=== PATIENT | male | born 1995 | race Caucasian/White ===

== ENCOUNTER 2018-05-17 14:32 | Emergency (ER) | payer OTHER ==
[~2018-05-17] VITALS: Ht 177.8 cm; Wt 81.6 kg
[2018-05-17 14:40] VITALS: BP 145/90
[2018-05-17] MEDS ORDERED: ONDANSETRON 4 MG ODT PO ONE (15:30)
[2018-05-17] MEDS ORDERED: KETOROLAC 60 MG/2 ML VIAL IM ONE (15:30)
[2018-05-17] MEDS ORDERED: MORPHINE SULFATE 4 MG/ML SYR IM ONE (17:15)
[2018-05-17] MEDS ORDERED: PHENYTOIN 100 MG CAPER PO ONE (17:15)
[2018-05-17 18:35] VITALS: BP 114/69
== END 2018-05-17 18:30 | disposition home or self-care (01) ==
LOC: MED 14:32
DX: R56.9 Unspecified convulsions (principal); R51 Headache; F17.200 Nicotine dependence, unspecified, uncomplicated
CPT/HCPCS: 96372; 99283; J1885; J2270; Q0162

== ENCOUNTER 2018-09-07 11:38 | Emergency (ER) | payer OTHER ==
[~2018-09-07] VITALS: Ht 177.8 cm; Wt 65.8 kg
--- NOTE | 2018-09-07 11:38 | NUR ---
Patient BIBA ACLS, transferred to bed 4. Dr. Barahona and RN evaluating patient at bedside.
[2018-09-07 11:40] VITALS: BP 103/59
[2018-09-07] MEDS ORDERED: LORazepam 2 MG/ML VIAL IM ONE (11:55)
--- NOTE | 2018-09-07 12:06 | NUR ---
LAB AT BEDSIDE
--- NOTE | 2018-09-07 12:19 | NUR ---
BIBA WITH C/O SEIZURE EPISODE FOR 2 MINS AT HOME, -INJURY, STATED NOT TAKING MEDICATION FOR 2 DAYS, HX OF TBI, SEIZURE, TX OF KEPPRA. AAOX4. PATIENT STATES HEADACHE PAIN OF 10/10 AT THIS TIME. PATIENT POSITIONED FOR COMFORT; HOB ELEVATED; BEDRAILS UP X2; BED DOWN. ER MD MADE AWARE OF PT STATUS.
[2018-09-07 12:51] LABS: BASOPHILS % (AUTO) 0.7 % (0.0-2.0); EOSINOPHILS # (AUTO) 0.1 K/uL (0-0.4); EOSINOPHILS % (AUTO) 1.9 % (0.0-4.0); HEMATOCRIT 41.4 % (36-52); HEMOGLOBIN 13.7 g/dL (12.0-18.0); LYMPHOCYTES # (AUTO) 1.5 K/uL (2.0-11.5); LYMPHOCYTES % (AUTO) 26.1 % (20.5-51.1); MEAN CORPUSCULAR HEMOGLOBIN 30 pg (27-31); MEAN CORPUSCULAR HGB CONC 33 g/dL (33-37); MEAN CORPUSCULAR VOLUME 91.4 fL (80-94); MONOCYTES # (AUTO) 0.5 K/uL (0.8-1.0); MONOCYTES % (AUTO) 8.3 % (1.7-9.3); NEUTROPHILS # (AUTO) 3.5 K/uL (1.8-7.7); PLATELET COUNT (AUTO) 306 K/uL (140-450); RED BLOOD CELL COUNT(AUTO) 4.52 MIL/uL (4.20-6.10); RED CELL DISTRIBUTION WIDTH 12.9 % (11.6-13.7); WHITE BLOOD COUNT (AUTO) 5.6 K/uL (4.8-10.8)
[2018-09-07 13:01] LABS: ANION GAP 14.8 (8-16); CARBON DIOXIDE 29.2 mmol/L (21-32); CHLORIDE 103 mmol/L (98-107); GFR ARICAN-AMERICAN 119 mL/min (>90); GLUCOSE 97 mg/dL (74-106); SODIUM SERUM 143 mmol/L (136-145); UREA NITROGEN, BLOOD 12 mg/dL (7-18)
[2018-09-07 13:15] LABS: ALBUMIN 4.2 g/dL (3.4-5.0); ASPARTATE AMINOTRANSFERASE 80 U/L (15-37); MAGNESIUM 2.4 mg/dL (1.8-2.4); TOTAL BILIRUBIN 0.2 mg/dL (0.0-1.0)
--- NOTE | 2018-09-07 13:33 | NUR ---
Dr. Barahona re-evaluating patient at bedside.
--- NOTE | 2018-09-07 14:14 | NUR ---
Dr. Barahona RE-evaluating patient at bedside.
[2018-09-07] MEDS ORDERED: levETIRAcetam 500 MG TAB PO ONE (14:15)
[2018-09-07 14:37] VITALS: BP 106/77
--- NOTE | 2018-09-07 14:37 | NUR ---
Patient discharged with v/s stable. Written and verbal after care instructions given and explained. Patient alert, oriented and verbalized understanding of instructions. Ambulatory with steady gait. All questions addressed prior to discharge. ID band removed. Patient advised to follow up with PMD. Rx of KEPPRA & OMEPRAZOLE given. Patient educated on indication of medication including possible reaction and side effects. Opportunity to ask questions provided and answered.
[2018-09-07 22:42] LABS: BARBITURATE, URINE NEG. ng/ml (NEG <=200); BENZODIAZEPINE, URINE NEG. ng/mL (NEG <=200); CANNABINOID, URINE POS. ng/mL (NEG <=50); COCAINE, URINE NEG. ng/mL (NEG <=300); OPIATE, URINE NEG. ng/mL (NEG <=2000); PHENCYCLIDINE SCREEN,URINE NEG. ng/mL (NEG <=25)
== END 2018-09-07 14:37 | disposition home or self-care (01) ==
LOC: MED 11:38
DX: R56.9 Unspecified convulsions (principal); Z87.820 Personal history of traumatic brain injury; R79.0 Abnormal level of blood mineral
CPT/HCPCS: 36415; 80053; 80185; 80305; 82550; 83735; 85025; 96372; 99283; G0482; J2060